=== PATIENT | male | born 1995 | race Two or more races ===

== ENCOUNTER 2021-11-13 14:41 | Emergency (ER) | payer MEDICAID ==
[~2021-11-13] VITALS: Ht 172.7 cm; Wt 70.0 kg
[2021-11-13 15:05] VITALS: BP 167/90
[2021-11-13] MEDS ORDERED: TETANUS, DIPHTHERIA, PERTUSSIS VAC/PF 0.5ML (>10YR OLD) IM ONE (15:15)
== END 2021-11-13 15:37 ==
LOC: ER 14:53
DX: S80.852A Superficial foreign body, left lower leg, initial encounter (principal); Y35.833A Legal intervention involving a conducted energy device, suspect injured, initial encounter; Y93.89 Activity, other specified; Y92.89 Other specified places as the place of occurrence of the external cause
CPT/HCPCS: 90471; 90715; 99284